=== PATIENT | male | born 1955 | race Two or more races ===

== ENCOUNTER 2019-01-25 11:04 | Inpatient (IN) | payer OTHER | END 2019-01-27 17:00 | disposition home or self-care (01) | LOC: ER 11:04 → TELE-WESTW 01-26 15:34 → WEST WING 01-26 15:53 → TELE-WESTW 01-26 15:54 → TELE 20:50 → TELE-WESTW 22:20 | DX: K92.2 Gastrointestinal hemorrhage, unspecified (principal); I10 Essential (primary) hypertension; I25.10 Atherosclerotic heart disease of native coronary artery without angina pectoris; Z95.1 Presence of aortocoronary bypass graft; E11.9 Type 2 diabetes mellitus without complications ==

== ENCOUNTER 2023-03-20 13:14 | Emergency (ER) | payer OTHER, MEDICAID ==
[~2023-03-20] VITALS: Ht 167.6 cm; Wt 63.2 kg
[~2023-03-20 13:14] MED LIST: ATOR20TA PO; CARB-118 PO; CARV25TA55 PO; HYDR-4833 PO; ISOS1TAB28 PO; LISI40TA16 PO; NITR0.4S29 SL
[2023-03-20 13:31] VITALS: BP 111/66
[2023-03-20 14:08] LABS: Urine Bacteria NONE SEEN /hpf (None Seen); Urine Blood Negative /uL (Negative); Urine Mucus MODERATE (None Seen); Urine Specific Gravity 1.025 (1.001-1.035); Urine WBC 17 /hpf (0 - 3)
[2023-03-20 14:32] LABS: Hematocrit 33.2 % (41.0-53.0); Hemoglobin 11.3 g/dL (13.5-17.5); Mean Corpuscular Hemoglobin 30.2 pg (28.0-32.0); Mean Corpuscular Hgb Conc. 34.1 g/dL (32.0-36.0); Mean Corpuscular Volume 88.7 fL (80.0-100.0); Red Blood Cells 3.75 10^6/uL (4.5-5.90); Red Cell Distribution Width 14.5 % (11.8-14.3); White Blood Cell 19.3 10^3/uL (4.4-10.8)
[2023-03-20 14:41] LABS: Band Neutrophils % (manual) 0; Basophils % (manual) 0 (0.0-2.0); Blast Cells 0; Metamyelocytes % 0; Myelocytes % 0; Promyelocytes % 0; Reactive Lymphocytes 0
[2023-03-20 14:53] LABS: Albumin 2.9 g/dL (3.4-5.0); Calcium 8.4 mg/dL (8.5-10.1)
[2023-03-20 14:57] LABS: BUN/Creatinine Ratio 25.6 (10.0-20.0); Bilirubin, Total 0.9 mg/dL (0.2-1.0); Total Protein 5.7 g/dL (6.4-8.2)
[2023-03-20] MEDS ORDERED: cefTRIAXone SOD 1,000 MG VL IM ONE (15:15)
[2023-03-20] MEDS ORDERED: CIPR-173 PO (15:20)
[2023-03-20] MEDS ORDERED: PHEN-922 PO (15:20)
[2023-03-20] MEDS ORDERED: TAMS-35 PO (15:20)
[2023-03-20 16:07] LABS: Eosinophils % (manual) 1 (0-7); Lymphocytes % (manual) 6 (10.0-50.0); Monocytes % (manual) 3 (0-12)
== END 2023-03-20 15:35 | disposition home or self-care (01) ==
LOC: ER 13:14
DX: N30.00 Acute cystitis without hematuria (principal); N40.0 Benign prostatic hyperplasia without lower urinary tract symptoms; I25.810 Atherosclerosis of coronary artery bypass graft(s) without angina pectoris; E11.9 Type 2 diabetes mellitus without complications; E78.5 Hyperlipidemia, unspecified; I10 Essential (primary) hypertension
CPT/HCPCS: 36415; 74176; 80053; 81001; 85007; 85027; 87086; 96372; 99285; J0696

== ENCOUNTER 2024-02-27 11:43 | Emergency (ER) | payer OTHER, MEDICAID ==
[~2024-02-27] VITALS: Ht 167.6 cm; Wt 63.3 kg
[~2024-02-27 11:43] MED LIST changes: +CIPR-173 PO; +PHEN-922 PO; +TAMS-35 PO
[2024-02-27] MEDS: ONDANSETRON HCL 4 MG/2 ML VIAL IM ONE (13:48)
[2024-02-27] MEDS: HYDROmorphone HCL 2 MG/ML VL/or syr IM ONE (13:49)
[2024-02-27 14:04] VITALS: BP 152/77; PULSE 60; RESP 16; TEMP 97.6; O2SAT 95
== END 2024-02-27 14:06 | disposition home or self-care (01) ==
LOC: ER 11:43
DX: G57.00 Lesion of sciatic nerve, unspecified lower limb (principal); G89.4 Chronic pain syndrome; I25.10 Atherosclerotic heart disease of native coronary artery without angina pectoris; E11.9 Type 2 diabetes mellitus without complications; I10 Essential (primary) hypertension; E78.5 Hyperlipidemia, unspecified; Z95.1 Presence of aortocoronary bypass graft
CPT/HCPCS: 96372; 99284; J1170; J2405

== ENCOUNTER 2024-03-09 21:49 | Inpatient (IN) | payer OTHER, MEDICAID ==
[~2024-03-09] VITALS: Ht 160 cm; Wt 64.5 kg
[~2024-03-09 21:49] MED LIST changes: +LORA-1123 PO
[2024-03-09 22:32] VITALS: PULSE 72; RESP 15; O2SAT 98
[2024-03-09] MEDS: SODIUM CHLORIDE 0.9% 250 ML IV ONE (22:44)
[2024-03-09 23:09] LABS: Basophils # (auto) 0 10 ^3/uL (0-0.2); Basophils % (auto) 0.4 % (0.0-2.0); Eosinophils # (auto) 0.1 10 ^3/uL (0-0.8); Eosinophils % (auto) 0.9 % (0.0-7.0); Hematocrit 28.4 % (41.0-53.0); Hemoglobin 9.6 g/dL (13.5-17.5); Lymphocytes # (auto) 1.1 10 ^3/uL (0.4-5.4); Mean Corpuscular Hemoglobin 29.5 pg (28.0-32.0); Mean Corpuscular Hgb Conc. 33.8 g/dL (32.0-36.0); Mean Corpuscular Volume 87.1 fL (80.0-100.0); Monocytes # (auto) 0.9 10 ^3/uL (0-1.3); Monocytes % (auto) 7.3 % (0.0-12.0); Neutrophils # (auto) 9.7 10 ^3/uL (1.6-8.6); Neutrophils % (auto) 82.4 % (37.0-80.0); Nucleated Red Blood Cells % 0.1 %; Red Blood Cells 3.26 10^6/uL (4.5-5.90); Red Cell Distribution Width 16.7 % (11.8-14.3); White Blood Cell 11.8 10^3/uL (4.4-10.8)
[2024-03-09 23:21] LABS: INR 1.12 (0.9-1.15); Partial Thromboplastin Time 26.5 SEC (24.5-34.5); Prothrombin Time 11.8 sec (9.3-11.8)
[2024-03-09 23:37] LABS: Albumin 3.3 g/dL (3.2-4.8); Alkaline Phosphatase 47 U/L (46-116); Anion Gap 8 (5-15); Aspartate Aminotransferase 10 U/L (13-40); BUN/Creatinine Ratio 36.4 (10.0-20.0); Blood Urea Nitrogen 28 mg/dL (9-23); Calcium 8.5 mg/dL (8.7-10.4); Carbon Dioxide 23 mmol/L (20-30); Chloride 105 mmol/L (98-107); Glucose 327 mg/dL (74-106); Potassium 4.8 mmol/L (3.5-5.1); Sodium 136 mmol/L (136-145)
[2024-03-09 23:38] LABS: Bilirubin, Total 0.8 mg/dL (0.2-1.0)
[2024-03-09 23:41] LABS: Alanine Aminotransferase 9 U/L (7-40)
[2024-03-09] MEDS: HYDROcodone-ACET 5/325MG TAB PO ONE (23:49)
[2024-03-09] MEDS: PIPERACILLIN-TAZOB 3.375GM 100 ML IV ONE (23:52)
[2024-03-10] VITALS (7 sets, daily range): BP systolic 109–161; BP diastolic 61–78; PULSE 65–85; RESP 16–20; TEMP 97.7–98.8; O2SAT 98–99
[2024-03-10 00:59] LABS: Urine Bacteria None Seen /hpf (None Seen)
[2024-03-10 01:16] LABS: Urine Blood Negative /uL (Negative); Urine Clarity Clear (Clear); Urine Color Yellow (Yellow); Urine Hyaline Cast FEW /lpf (0 - 2); Urine Mucus FEW (None Seen); Urine Protein, UAD 1+ (Negative); Urine Specific Gravity 1.026 (1.001-1.035); Urine Urobilinogen Normal (Negative); Urine WBC 3 /hpf (0 - 3)
[2024-03-10] MEDS ORDERED: DEXTROSE (50%) 50ML SYRG IV PRN (01:45)
[2024-03-10] MEDS ORDERED: ONDANSETRON HCL 4 MG/2 ML VIAL IV PRN (01:45)
[2024-03-10] MEDS: InsuLIN REG 1unit/0.01ml Soln (100units/ml) SC SCH (04:00)
[2024-03-10] MEDS: ACCU-CHEK COMFORT CURVE STRIP VI SCH (04:47)
[2024-03-10 05:00] LABS: Basophils # (auto) 0 10 ^3/uL (0-0.2); Basophils % (auto) 0.3 % (0.0-2.0); Eosinophils # (auto) 0.1 10 ^3/uL (0-0.8); Hematocrit 25.8 % (41.0-53.0); Lymphocytes % (auto) 11.8 % (10.0-50.0); Mean Corpuscular Hemoglobin 30.3 pg (28.0-32.0); Mean Corpuscular Hgb Conc. 34.9 g/dL (32.0-36.0); Mean Corpuscular Volume 86.8 fL (80.0-100.0); Monocytes # (auto) 0.7 10 ^3/uL (0-1.3); Monocytes % (auto) 8.2 % (0.0-12.0); Neutrophils # (auto) 6.9 10 ^3/uL (1.6-8.6); Neutrophils % (auto) 78.7 % (37.0-80.0); Red Blood Cells 2.97 10^6/uL (4.5-5.90); Red Cell Distribution Width 16.9 % (11.8-14.3); White Blood Cell 8.7 10^3/uL (4.4-10.8)
[2024-03-10] MEDS: SODIUM CHLOR 0.9% PF (SALINE LOCK) 10ML VIAL/SYR IV SCH (05:02)
[2024-03-10] MEDS: CARBIDOPA W LEVODOPA 25/100mg TABLET PO SCH (05:04)
[2024-03-10] MEDS ORDERED: NITROGLYCERIN 0.4 MG SL TAB SL PRN (05:15)
[2024-03-10] MEDS ORDERED: MORPHINE SULFATE INJ 2 MG/ml SYRG IV PRN (05:15)
[2024-03-10 05:19] LABS: Alanine Aminotransferase 13 U/L (7-40); Albumin 3.1 g/dL (3.2-4.8); Alkaline Phosphatase 42 U/L (46-116); Anion Gap 4 (5-15); Aspartate Aminotransferase 9 U/L (13-40); BUN/Creatinine Ratio 42.1 (10.0-20.0); Bilirubin, Total 0.9 mg/dL (0.2-1.0); Blood Urea Nitrogen 32 mg/dL (9-23); Calcium 8.4 mg/dL (8.7-10.4); Carbon Dioxide 27 mmol/L (20-30); Chloride 107 mmol/L (98-107); Glucose 236 mg/dL (74-106); Potassium 4.2 mmol/L (3.5-5.1); Sodium 138 mmol/L (136-145); Total Protein 4.6 g/dL (5.7-8.2)
[2024-03-10 07:55] LABS: Magnesium 1.7 mg/dL (1.6-2.6)
[2024-03-10] MEDS: cefTRIAXone 1GM/50ML D5W 50 ML IV SCH (09:07)
[2024-03-10] MEDS: CARVEDILOL 3.125 MG TAB PO SCH (10:02)
[2024-03-10] MEDS: FUROSEMIDE 20 MG/2 ML VIAL IV SCH ×2 (10:03→20:54)
[2024-03-10] MEDS: AZITHROMYCIN 500MG/ 250ML 250 ML IV SCH (10:03)
[2024-03-10] MEDS: HYDROcodone-ACET 5/325MG TAB PO PRN (14:37)
[2024-03-10] MEDS: hydrALAZINE HCL 20 MG/ML VL IV PRN (17:28)
[2024-03-10] MEDS: ATORVASTATIN 20 MG TAB PO SCH (20:53)
[2024-03-10] MEDS ORDERED: ATORVASTATIN 20 MG TAB PO SCH (22:00)
[2024-03-11] VITALS (8 sets, daily range): BP systolic 120–172; BP diastolic 62–73; PULSE 78–91; RESP 16–20; TEMP 36.4; O2SAT 97–99
[2024-03-11] MEDS: PANTOPRAZOLE 40 MG TAB PO SCH (05:24)
[2024-03-11 06:00] LABS: Hematocrit 27.5 % (41.0-53.0); Hemoglobin 9.8 g/dL (13.5-17.5); Mean Corpuscular Hemoglobin 30.7 pg (28.0-32.0); Mean Corpuscular Hgb Conc. 35.7 g/dL (32.0-36.0); Red Cell Distribution Width 16.9 % (11.8-14.3); White Blood Cell 10.5 10^3/uL (4.4-10.8)
[2024-03-11 06:29] LABS: Albumin 3.9 g/dL (3.2-4.8); Alkaline Phosphatase 52 U/L (46-116); Anion Gap 7 (5-15); Aspartate Aminotransferase 14 U/L (13-40); BUN/Creatinine Ratio 37.8 (10.0-20.0); Bilirubin, Total 0.6 mg/dL (0.2-1.0); Blood Urea Nitrogen 31 mg/dL (9-23); Calcium 9.4 mg/dL (8.5-10.1); Carbon Dioxide 26 mmol/L (20-30); Chloride 105 mmol/L (98-107); Glucose 190 mg/dL (74-106); Potassium 3.7 mmol/L (3.5-5.1); Sodium 138 mmol/L (136-145); Total Protein 5.8 g/dL (5.7-8.2)
[2024-03-11 06:37] LABS: Alanine Aminotransferase < 9 U/L (7-40)
[2024-03-11 07:02] LABS: Band Neutrophils % (manual) 0; Basophils % (manual) 0 (0.0-2.0); Blast Cells 0; Metamyelocytes % 0; Myelocytes % 0; Promyelocytes % 0; Reactive Lymphocytes 0
[2024-03-11 08:11] LABS: Eosinophils % (manual) 1 (0-7); Lymphocytes % (manual) 12 (10.0-50.0); Monocytes % (manual) 9 (0-12)
[2024-03-11 08:12] LABS: Platelet Estimate Adequate
[2024-03-11] MEDS: DOCUSATE SOD 100 MG CAP PO PRN (08:20)
[2024-03-11] MEDS ORDERED: TRAZ-228 PO (16:09)
[2024-03-11] MEDS: traZODone HCL 50 MG TAB PO SCH (22:00)
[2024-03-12] VITALS (7 sets, daily range): BP systolic 97–175; BP diastolic 52–77; PULSE 71–104; RESP 16–21; TEMP 97.7–98.9; O2SAT 97–99
[2024-03-12] MEDS: ACETAMINOPHEN 325 MG TAB PO PRN (10:13)
[2024-03-12] MEDS: ACCU-CHEK COMFORT CURVE STRIP VI SCH (12:00)
[2024-03-12] MEDS: InsuLIN REG 1unit/0.01ml Soln (100units/ml) SC SCH (12:00)
[2024-03-12] MEDS ORDERED: CARB1TAB73 PO (15:52)
[2024-03-12] MEDS ORDERED: ISOS1TAB28 PO (15:53)
[2024-03-12] MEDS ORDERED: ROPI1TAB78 PO (15:53)
[2024-03-12] MEDS ORDERED: FIN5T PO (15:53)
[2024-03-12] MEDS ORDERED: PANT40TA57 PO (15:53)
[2024-03-12] MEDS ORDERED: LATA0.008 EACHEYE (15:53)
[2024-03-12] MEDS ORDERED: BENZ1TAB6 PO (16:01)
[2024-03-12] MEDS: CARBIDOPA W LEVODOPA 25/250mg TABLET PO SCH (17:37)
[2024-03-12] MEDS: DOXYCYCLINE 100 MG TAB/CAP PO SCH (21:31)
[2024-03-13] VITALS (9 sets, daily range): BP systolic 113–148; BP diastolic 62–75; PULSE 80–110; RESP 16–19; TEMP 97.8–98.4; O2SAT 95–99
[2024-03-13] MEDS ORDERED: ONDANSETRON HCL 4 MG/2 ML VIAL ONE (13:07)
[2024-03-13] MEDS ORDERED: fentaNYL CITRATE 100 MCG/2 ML VL ONE (13:07)
[2024-03-13] MEDS ORDERED: PROPOFOL 10 MG/ML 20 ML IV ONE (13:07)
[2024-03-13] MEDS ORDERED: MIDAZOLAM HCL 2MG/2ML 2ml VIAL (1mg/ml) ONE (13:07)
[2024-03-13] MEDS ORDERED: GLYCOPYRROLATE 0.2 MG/ML 1ML VIAL ONE (13:08)
[2024-03-13] MEDS: ACCU-CHEK COMFORT CURVE STRIP VI ONE (13:30)
[2024-03-13] MEDS ORDERED: HYDROmorphone HCL 2 MG/ML VL/or syr IV PRN (13:30)
[2024-03-13] MEDS ORDERED: HYDR-4798 PO (15:59)
[2024-03-13] MEDS ORDERED: PRED1SUS4 LEFTEYE (16:04)
[2024-03-13] MEDS ORDERED: GABA-1250 PO (16:04)
[2024-03-13] MEDS: SUCRALFATE 1 GM/10 ML ORAL SUSP GT SCH (17:43)
[2024-03-13] MEDS: LATANOPROST 0.005 % OPTH(EYE) SOL 2.5ML EACHEYE SCH (22:00)
[2024-03-14 01:00] VITALS: BP 99/49; PULSE 86; RESP 18; TEMP 97.9; O2SAT 95
[2024-03-14 05:00] VITALS: BP 91/43; PULSE 80; RESP 18; TEMP 98.3; O2SAT 97
[2024-03-14 07:30] VITALS: PULSE 80; PULSE 82; RESP 18; O2SAT 98
[2024-03-14 08:58] VITALS: BP 122/66; PULSE 83; RESP 19; TEMP 97.6; O2SAT 98
[2024-03-14 12:56] VITALS: BP 148/68; PULSE 84; RESP 17; TEMP 97.9; O2SAT 99
[2024-03-14] MEDS ORDERED: PANT40T PO (14:59)
[2024-03-14] MEDS ORDERED: SUCR1SUS26 GT (14:59)
[2024-03-14 16:02] VITALS: BP 122/66; PULSE 83; RESP 18; TEMP 98.5; O2SAT 96
== END 2024-03-14 16:35 | disposition home or self-care (01) | DRG 377 ==
LOC: ER 21:49 → TELE 03-10 05:08 → TELE-WESTW 03-10 07:47
PROVIDERS: ADMIT Nurse Practitioner Family; ATTEND Internal Medicine
PROC: 0DB68ZX Excision of Stomach, Via Natural or Artificial Opening Endoscopic, Diagnostic (ICD-10-PCS; 2024-03-13)
PROC: 0DB48ZX Excision of Esophagogastric Junction, Via Natural or Artificial Opening Endoscopic, Diagnostic (ICD-10-PCS; 2024-03-13)
PROC: 0DB98ZX Excision of Duodenum, Via Natural or Artificial Opening Endoscopic, Diagnostic (ICD-10-PCS; principal; 2024-03-13 13:10)
DX: K25.0 Acute gastric ulcer with hemorrhage (principal); G93.41 Metabolic encephalopathy; J15.69 Pneumonia due to other Gram-negative bacteria; I50.23 Acute on chronic systolic (congestive) heart failure; I21.A1 Myocardial infarction type 2; K25.4 Chronic or unspecified gastric ulcer with hemorrhage; K29.70 Gastritis, unspecified, without bleeding; E11.65 Type 2 diabetes mellitus with hyperglycemia; D50.0 Iron deficiency anemia secondary to blood loss (chronic); N43.3 Hydrocele, unspecified; G20.A1 Parkinson's disease without dyskinesia, without mention of fluctuations; R91.1 Solitary pulmonary nodule; I11.0 Hypertensive heart disease with heart failure; I25.10 Atherosclerotic heart disease of native coronary artery without angina pectoris; I35.1 Nonrheumatic aortic (valve) insufficiency; I45.10 Unspecified right bundle-branch block; K57.30 Diverticulosis of large intestine without perforation or abscess without bleeding; E78.00 Pure hypercholesterolemia, unspecified; N45.1 Epididymitis; K22.70 Barrett's esophagus without dysplasia; K44.9 Diaphragmatic hernia without obstruction or gangrene; Q55.29 Other congenital malformations of testis and scrotum; Z86.73 Personal history of transient ischemic attack (TIA), and cerebral infarction without residual deficits; Z95.1 Presence of aortocoronary bypass graft; Z79.899 Other long term (current) drug therapy; Z87.891 Personal history of nicotine dependence; Z82.49 Family history of ischemic heart disease and other diseases of the circulatory system; Z98.61 Coronary angioplasty status
CPT/HCPCS: 36415; 70450; 71045; 71250; 74176; 76870; 80053; 80061; 81001; 82962; 83036; 83735; 83880; 84443; 84484; 85007; 85025; 85027; 85610; 85730; 86850; 86900; 86901; 93005; 93306; 96361; 96365; 96367; 96375; G0378; J1815; J2250; J2405; J2543; J2704